=== PATIENT | male | born 1995 | race Caucasian/White ===

== ENCOUNTER 2017-01-10 14:32 | Emergency (ER) | payer BC ==
[~2017-01-10 14:32] MED LIST: ALBUTEROL17 GM; BACTRIM DS TABL1 TA1 PO; BENADRYL25 M1 PO; CLARINEX5 MG; FLEXERIL10 MG PO; KEFLEX500 M2 PO; NO MEDICATIONS; PREDNISONE PO; SINGULAIR; Z-PACK
== END 2017-01-10 15:50 | disposition home or self-care (01) ==
LOC: SED 14:32
DX: J06.9 Acute upper respiratory infection, unspecified (principal); G44.209 Tension-type headache, unspecified, not intractable; F17.200 Nicotine dependence, unspecified, uncomplicated; Z98.890 Other specified postprocedural states
CPT/HCPCS: 94640; 99284